=== PATIENT | male | born 1970 ===

== ENCOUNTER 2016-08-21 00:20 | Emergency (ER) | payer SELFPAY ==
[2016-08-21] MEDS ORDERED: Dexamethasone Sodium Phos 10 mg/mL PF Vial ONE (00:44)
[2016-08-21] MEDS ORDERED: Dexamethasone Sodium Phos 4 mg/mL Vial IVP STA (00:45)
[2016-08-21] MEDS ORDERED: Sodium Chloride 0.9% 1,000 ML IV ONE (00:46)
--- NOTE | 2016-08-21 00:52 | ED Physician Chart ---
Chief Complaint/HPI - Patient Information Date Seen:: 08/21/16 Time Seen:: 00:20 Chief Complaint:: alcohol intoxication History of Present Illness:: Approximately 46-year-old male brought in by EMS with acute, moderate, alcohol intoxication. Has associated nausea and vomiting. When he was loitering when a concerned citizen called 911. Patient refuses to give his name. History limited patient is intoxicated and uncooperative History provided by EMS Allergies:: Allergies Allergy/AdvReac Type Severity Reaction Status Date / Time No Known Allergies Allergy Verified 08/21/16 00:39 Historian:: EMS Review:: Nurse's Note Reviewed, EMS run form Reviewed Review of Systems - Review of Systems Other: Complete system review otherwise unremarkable except as noted in HPI. Past Medical History - Past Medical History Obtainable: Yes (intoxicated and uncooperative) Family Medical History - Family Member Mother History Unknown: Yes Physical Exam - Physical Examination Other:: INITIAL VITAL SIGNS: Reviewed by me GENERAL: Patient is lying on gurney. Alert. Smells of alcohol. Uncooperative. HEAD: Head is normocephalic. No evidence of trauma. No scalp or facial swelling EYES: No scleral icterus bilaterally ENT: Oropharynx is clear of exudate and erythema NECK: Supple. No meningismus. No masses. No evidence of trauma. No cervical spine bony step-offs or crepitus to palpation RESPIRATORY: No tachypnea. Clear to auscultation bilaterally. CV: Regular rate and rhythm. No murmurs, rubs, or gallops ABDOMEN: Soft, non-distended. No masses BACK: No ecchymoses. No evidence of trauma EXTREMITIES: Normal to inspection and palpation. No deformity SKIN: Warm and dry. No obvious rash. No jaundice NEUROLOGIC: Face is symmetric. Withdraws to pain in all extremities ED Septic Shock - . Is Septic Shock (SBP<90, OR Lactate>4 mmol\L) present?: No Reassessment (Disposition) - Reassessment Reassessment:: Patient brought in by ambulance after found loitering in public. Appears intoxicated with alcohol. He did have an episode of vomiting. Received IV antiemetics. Also received IV fluids. Patient observed for some time. Eventually was ambulating with steady gait and no assistance. Ate sandwich. Patient wished to be discharged. Patient discharged home. Follow-up free clinic or PCP within one to 2 days. Gave return to ER precautions. Patient understands and agrees with the plan. Reassessment Condition:: Improved - Diagnosis Diagnosis:: EtOH intoxication - Aftercare/Follow up Instructions Aftercare/Follow-Up Instructions:: Counseled pt regarding lab results/diagnosis & need follow up, Refer to Discharge Instructions - Patient Disposition Discharge/Transfer:: Home Condition at Disposition:: Improved ED Discharge Plan - Patient Disposition Admit/Discharge/Transfer: PT DISCHARGED HOME Condition at Disposition: Improved Instructions: Alcohol Intoxication, [id number]
== END 2016-08-21 06:05 | disposition home or self-care (01) ==
LOC: ER 00:20
DX: F10.129 Alcohol abuse with intoxication, unspecified (principal)
CPT/HCPCS: 99284; 96374; 96375; J2405; J7030; Z7502